=== PATIENT | female | born 1975 | race African-American/Black ===

== ENCOUNTER 2016-10-31 14:42 | Emergency (ER) | payer SELFPAY ==
[~2016-10-31] VITALS: Ht 160 cm; Wt 123.0 kg
[~2016-10-31 14:42] MED LIST: GLIP5TAB8 PO; GLUCOMETER XX; GLUCOMTESTSTRIPS XX; METF500 PO; Z.0.LANCETS XX
[2016-10-31 14:58] VITALS: BP 136/82; PULSE 97; RESP 16; TEMP 98.5; O2SAT 100
[2016-10-31] MEDS ORDERED: SODIUM CHLOR 0.9% 1000 ML INJ 1,000 ML IV SCH (15:12)
[2016-10-31] MEDS ORDERED: METF500T PO (15:14)
[2016-10-31] MEDS ORDERED: GLIP5TAB8 PO (15:14)
[2016-10-31] MEDS ORDERED: SODIUM CHLORIDE 0.9% FLUSH 5 ML FLUSH IVF PRN (15:15)
[2016-10-31] MEDS ORDERED: MORPHINE SULFATE 4 MG/ML INJ IV PUSH ONE (15:15)
[2016-10-31] MEDS ORDERED: ONDANSETRON HCL 4 MG/2 ML VIAL IVP ONE (15:15)
[2016-10-31 15:37] VITALS: O2SAT 100
[2016-10-31 15:43] LABS: AUTOMATED NEUTROPHIL # 5.3 TH/MM3 (1.8-7.7); BASOPHIL % 0.3 % (0.0-2.0); EOSINOPHIL # 0.2 TH/MM3 (0-0.4); EOSINOPHIL % 2.6 % (0.0-4.0); HEMATOCRIT 33.3 % (35.0-46.0); LYMPH % 35.9 % (9.0-44.0); LYMPHOCYTE # 3.4 TH/MM3 (1.0-4.8); MEAN CELL VOLUME 76.1 FL (80.0-100.0); MEAN CORPUSCULAR HEMOGLOBIN 23.6 PG (27.0-34.0); MONO % 5.3 % (0.0-8.0); NEUT % 55.9 % (16.0-70.0); PLATELET COUNT 340 TH/MM3 (150-450); RED BLOOD COUNT 4.37 MIL/MM3 (4.00-5.30); RED CELL DISTRIBUTION WIDTH 14.4 % (11.6-17.2); WHITE BLOOD COUNT 9.4 TH/MM3 (4.0-11.0)
[2016-10-31 15:43] LABS: BLOOD, URINE NEG (NEG); GLUCOSE,URINE NEG (NEG); KETONE, URINE NEG (NEG); NITRITE,URINE NEG (NEG); PH, URINE 5.5 (5.0-8.5)
[2016-10-31 15:46] LABS: HEMO FLAGS AUTO DIFF
[2016-10-31 15:55] LABS: POTASSIUM 3.7 MEQ/L (3.5-5.1)
[2016-10-31 15:59] LABS: BICARBONATE 25.9 MEQ/L (21.0-32.0)
[2016-10-31 15:59] LABS: COMMENT (UR) CULT NOT INDICATED; CULTURE IF INDICATED CULT NOT INDICATED; METHOD OF COLLECTION CLEAN CATCH; SQUAMOUS EPITHELIAL CELL URINE 0-5 /hpf (0-5); URINE COLOR YELLOW (YELLW/STRAW); WBC, URINE 0-2 /hpf (0-5)
--- NOTE | 2016-10-31 16:00 | PD ---
HPI Chief Complaint: Abdominal Pain Time Seen by Provider: 15:05 Travel History International Travel<30 days: No Contact w/Intl Traveler<30days: No Traveled to known affect area: No History of Present Illness HPI Patient is a 41 year old female who comes in complaining of abdominal pain with nausea that started today. She says the pain started in her RLQ. She denies fever or chills. She denies dysuria or vaginal discharge. She has had nausea, but denies vomiting. She denies chest pain or shortness of breath. Her last menstrual period was in September. She has history of tubal ligation. PFSH Past Medical History Asthma: Yes (on no meds for asthma) Autoimmune Disease: No Blood Disorders: No Heart Rhythm Problems: No Cancer: No Cardiovascular Problems: No High Cholesterol: No Chest Pain: Yes (INTERMITTENT SINCE 2006- none for years now) COPD: No Diabetes: Yes (type 2) Patient Takes Glucophage: Yes Diminished Hearing: No Endocrine: No Glaucoma: No Genitourinary: No Hepatitis: No Hiatal Hernia: No Hypertension: No Immune Disorder: No Musculoskeletal: No Neurologic: No Psychiatric: No Reproductive: No Respiratory: Yes Immunizations Current: Yes Sleep Apnea: No Thyroid Disease: No PNEUMOCCOCAL Vaccine (Year): 2 ?: Not LMP: 10/17/16 : 2 Para: 2 Tubal Ligation: Yes Past Surgical History Abdominal Surgery: No AICD: No Cardiac Surgery: No Ear Surgery: No Endocrine Surgery: No Eye Surgery: No Genitourinary Surgery: No Gynecologic Surgery: Yes (TUBAL LIGATION) Oral Surgery: No Pacemaker: No Thoracic Surgery: No Other Surgery: Yes Social History Alcohol Use: No Tobacco Use: No Substance Use: No Allergies-Medications (Allergen,Severity, Reaction): Coded Allergies: Iodinated Contrast Media (Verified Allergy, Severe, Anaphylaxis, 10/31/16) Iodine (Verified Allergy, Severe, Anaphylaxis, 10/31/16) Shrimp (Verified Allergy, Severe, Anaphylaxis, 10/31/16) Reported Meds & Prescriptions Reported Meds & Active Scripts Active Zofran Odt (Ondansetron Odt) 4 Mg Tab 4 Mg SL Q6HR PRN Bentyl (Dicyclomine HCl) 20 Mg Tab 20 Mg PO QID PRN Reported Glipizide 5 Mg Tab 5 Mg PO BIDAC Take 30 minutes before a meal Metformin (Metformin HCl) 500 Mg Tab 500 Mg PO BIDPC With meals Review of Systems Except as stated in HPI: all other systems reviewed are Neg General / Constitutional: No: Fever, Chills HENT: No: Headaches, Lightheadedness Cardiovascular: No: Chest Pain or Discomfort Respiratory: No: Shortness of Breath Gastrointestinal: Positive: Nausea, Abdominal Pain, No: Vomiting Genitourinary: No: Dysuria, Flank Pain Skin: No Rash, No Change in Pigmentation Neurologic: No: Weakness, Dizziness Physical Exam Narrative GENERAL: Awake and alert in no acute distress. SKIN: Warm and dry. HEAD: Atraumatic. Normocephalic. EYES: Pupils equal and round. No scleral icterus. ENT: Mucous membranes pink and moist. NECK: Trachea midline. No JVD. CARDIOVASCULAR: Regular rate and rhythm. No murmur appreciated. RESPIRATORY: No accessory muscle use. Clear to auscultation. Breath sounds equal bilaterally. GASTROINTESTINAL: Abdomen soft, nondistended. Tender to palpation of the right upper quadrant as well as right lower quadrant. Voluntary guarding, no rebound. No CVA tenderness. PELVIC: mild erythema of the cervix, scant white discharge. No CMT. MUSCULOSKELETAL: No obvious deformities. No clubbing. No cyanosis. No edema. NEUROLOGICAL: Awake and alert. No obvious cranial nerve deficits. Motor grossly within normal limits. Normal speech. PSYCHIATRIC: Appropriate mood and affect; insight and judgment normal. Data Data Last Documented VS Vital Signs Date Time Temp Pulse Resp B/P Pulse Ox O2 Delivery O2 Flow Rate FiO2 10/31/16 15:37 100 Room Air 10/31/16 14:58 98.5 97 16 136/82 Orders Basic Metabolic Panel (Bmp) (10/31/16 15:12) Complete Blood Count With Diff (10/31/16 15:12) Lipase (10/31/16 15:12) Prothrombin Time / Inr (Pt) (10/31/16 15:12) Act Partial Throm Time (Ptt) (10/31/16 15:12) Urinalysis - C+S If Indicated (10/31/16 15:12) Ua Includes Microscopic (10/31/16 15:12) Iv Access Insert/Monitor (10/31/16 15:12) Ecg Monitoring (10/31/16 15:12) Oximetry (10/31/16 15:12) Morphine Inj (Morphine Inj) (10/31/16 15:15) Ondansetron Inj (Zofran Inj) (10/31/16 15:15) Sodium Chlor 0.9% 1000 Ml Inj (Ns 1000 M (10/31/16 15:12) Sodium Chloride 0.9% Flush (Ns Flush) (10/31/16 15:15) Ed Urine Pregnancytest Poc (10/31/16 15:12) Hepatic Functional Panel (10/31/16 15:12) Ct Abd/Pel W/O Iv Contrast (10/31/16 15:12) Wet Prep Profile (10/31/16 15:51) Gc And Chlamydia Pcr (10/31/16 15:51) Labs Laboratory Tests Test 10/31/16 10/31/16 10/31/16 15:10 15:26 16:00 Urine Collection Type CLEAN CATCH Urine Color YELLOW Urine Turbidity CLEAR Urine pH 5.5 Urine Specific [place] 1.020 Urine Protein NEG mg/dL Urine Glucose (UA) NEG mg/dL Urine Ketones NEG mg/dL Urine Occult Blood NEG Urine Nitrite NEG Urine Bilirubin NEG Urine Leukocyte Esterase NEG Urine WBC 0-2 /hpf Urine Squamous Epithelial 0-5 /hpf Cells Microscopic Urinalysis Comment CULT NOT INDICATED Urine Collection Time 15:10 White Blood Count 9.4 TH/MM3 Red Blood Count 4.37 MIL/MM3 Hemoglobin 10.3 GM/DL Hematocrit 33.3 % Mean Corpuscular Volume 76.1 FL Mean Corpuscular Hemoglobin 23.6 PG Mean Corpuscular Hemoglobin 31.0 % Concent Red Cell Distribution Width 14.4 % Platelet Count 340 TH/MM3 Mean Platelet Volume 8.5 FL Neutrophils (%) (Auto) 55.9 % Lymphocytes (%) (Auto) 35.9 % Monocytes (%) (Auto) 5.3 % Eosinophils (%) (Auto) 2.6 % Basophils (%) (Auto) 0.3 % Neutrophils # (Auto) 5.3 TH/MM3 Lymphocytes # (Auto) 3.4 TH/MM3 Monocytes # (Auto) 0.5 TH/MM3 Eosinophils # (Auto) 0.2 TH/MM3 Basophils # (Auto) 0.0 TH/MM3 CBC Comment AUTO DIFF Differential Comment AUTO DIFF CONFIRMED Prothrombin Time 10.2 SEC Prothromb Time International 0.9 RATIO Ratio Activated Partial 27.4 SEC Thromboplast Time Sodium Level 141 MEQ/L Potassium Level 3.7 MEQ/L Chloride Level 105 MEQ/L Carbon Dioxide Level 25.9 MEQ/L Anion Gap 10 MEQ/L Blood Urea Nitrogen 5 MG/DL Creatinine 0.72 MG/DL Estimat Glomerular Filtration 109 ML/MIN Rate Random Glucose 168 MG/DL Calcium Level 8.3 MG/DL Total Bilirubin 0.6 MG/DL Direct Bilirubin 0.1 MG/DL Indirect Bilirubin 0.5 MG/DL Aspartate Amino Transf 9 U/L (AST/SGOT) Alanine Aminotransferase 13 U/L (ALT/SGPT) Alkaline Phosphatase 91 U/L Total Protein 7.4 GM/DL Albumin 3.1 GM/DL Lipase 125 U/L Clue Cells (Wet Prep) NONE SEEN Vaginal Trichomonas (Wet Prep) NONE SEEN Vaginal Yeast (Wet Prep) NONE SEEN Chlamydia trachomatis DNA NOT DETECTED (PCR) Neisseria gonorrhoeae DNA NOT DETECTED (PCR) MDM Medical Decision Making Medical Screen Exam Complete: Yes Emergency Medical Condition: Yes Medical Record Reviewed: Yes Differential Diagnosis UTI versus pyelonephritis versus appendicitis versus cholecystitis versus cholelithiasis versus colitis Narrative Course Patient is a 41-year-old female comes in complaining of abdominal pain. Exam shows tenderness to palpation of the right upper and right lower quadrant. IV established, labs sent. Patient given IV fluids, morphine for pain, Zofran. Cervical swab sent for wet prep as well as GC/chlamydia PCR. Patient signed out to Dr. Coles to follow-up CT scan as well as her labs and disposition appropriately. Scripts Ondansetron Odt (Zofran Odt)4 Mg Tab4 Mg SL Q6HR PRN (Nausea/Vomiting) #30 TAB Ref 0 Prov:Aubrey Coles MD 10/31/16 Dicyclomine (Bentyl)20 Mg Tab20 Mg PO QID PRN (ABDOMINAL CRAMPING) #15 TAB Ref 0 Prov:Aubrey Coles MD 10/31/16 Condition: Stable Claudine Solis MD Oct 31, 2016 16:00
[2016-10-31 16:03] LABS: INDIRECT BILIRUBIN 0.5 MG/DL (0.0-0.8); TOTAL BILIRUBIN ADULT 0.6 MG/DL (0.2-1.0)
[2016-10-31 16:20] LABS: SCAN/DIFF AUTO DIFF CONFIRMED
[2016-10-31 16:28] LABS: APTT (PATIENT) 27.4 SEC (24.3-30.1); INTERNATIONAL NORMALIZED RATIO 0.9 RATIO; PROTHROMBIN TIME - PATIENT 10.2 SEC (9.8-11.6)
--- NOTE | 2016-10-31 17:14 | RADHPO ---
EXAM DATE/TIME: 10/31/2016 16:45 [facility] COMPARISON: CT ABDOMEN & PELVIS W/O CONTRAST, January 04, 2011, 22:12 report only. INDICATIONS : Right lower abdomen pain today. ORAL CONTRAST: No oral contrast ingested. RADIATION DOSE: 23.84 CTDIvol (mGy) MEDICAL HISTORY : Diabetes mellitus type 2. SURGICAL HISTORY : Tubal ligation. ENCOUNTER: Initial ACUITY: 1 day PAIN SCALE: 7/10 LOCATION: Right lower quadrant TECHNIQUE: Volumetric scanning of the abdomen and pelvis was performed. Using automated exposure control and adjustment of the mA and/or kV according to patient size, radiation dose was kept as low as reasonably achievable to obtain optimal diagnostic quality images. FINDINGS: LOWER LUNGS: The visualized lower lungs are clear. LIVER: Homogeneous density without lesion. There is no dilation of the biliary tree. No calcifi ed gallstones. Gallbladder sutures a luminal structure without wall thickening SPLEEN: Normal size without lesion. PANCREAS: Within normal limits. KIDNEYS: Normal in size and shape. There is no mass, stone, or hydronephrosis. ADRENAL GLANDS: Within normal limits. VASCULAR: There is no aortic aneurysm. BOWEL/MESENTERY: The stomach, small bowel, and colon demonstrate no acute abnormality. There is no free intraperitoneal air or fluid. What may represent normal appendix is visualized. No inflammato ry changes in the right lower quadrant. ABDOMINAL WALL: Within normal limits. RETROPERITONEUM: There is no lymphadenopathy. BLADDER: No wall thickening or mass. REPRODUCTIVE: Within normal limits. INGUINAL: There is no lymphadenopathy or hernia. MUSCULOSKELETAL: Within normal limits for patient age. CONCLUSION: Negative examination Gunner Frances MD on October 31, 2016 at 17:08 Board Certified Radiologist. This report was verified electronically.
[2016-10-31] MEDS ORDERED: BENT20TA PO (17:36)
[2016-10-31] MEDS ORDERED: ZOFR4TAB3 SL (17:36)
--- NOTE | 2016-10-31 17:36 | PD ---
Data Data Last Documented VS Vital Signs Date Time Temp Pulse Resp B/P Pulse Ox O2 Delivery O2 Flow Rate FiO2 10/31/16 15:37 100 Room Air 10/31/16 14:58 98.5 97 16 136/82 Orders Basic Metabolic Panel (Bmp) (10/31/16 15:12) Complete Blood Count With Diff (10/31/16 15:12) Lipase (10/31/16 15:12) Prothrombin Time / Inr (Pt) (10/31/16 15:12) Act Partial Throm Time (Ptt) (10/31/16 15:12) Urinalysis - C+S If Indicated (10/31/16 15:12) Ua Includes Microscopic (10/31/16 15:12) Iv Access Insert/Monitor (10/31/16 15:12) Ecg Monitoring (10/31/16 15:12) Oximetry (10/31/16 15:12) Morphine Inj (Morphine Inj) (10/31/16 15:15) Ondansetron Inj (Zofran Inj) (10/31/16 15:15) Sodium Chlor 0.9% 1000 Ml Inj (Ns 1000 M (10/31/16 15:12) Sodium Chloride 0.9% Flush (Ns Flush) (10/31/16 15:15) Ed Urine Pregnancytest Poc (10/31/16 15:12) Hepatic Functional Panel (10/31/16 15:12) Ct Abd/Pel W/O Iv Contrast (10/31/16 15:12) Wet Prep Profile (10/31/16 15:51) Gc And Chlamydia Pcr (10/31/16 15:51) Labs Laboratory Tests Test 10/31/16 10/31/16 10/31/16 15:10 15:26 16:00 Urine Collection Type CLEAN CATCH Urine Color YELLOW Urine Turbidity CLEAR Urine pH 5.5 Urine Specific [place] 1.020 Urine Protein NEG mg/dL Urine Glucose (UA) NEG mg/dL Urine Ketones NEG mg/dL Urine Occult Blood NEG Urine Nitrite NEG Urine Bilirubin NEG Urine Leukocyte Esterase NEG Urine WBC 0-2 /hpf Urine Squamous Epithelial 0-5 /hpf Cells Microscopic Urinalysis Comment CULT NOT INDICATED Urine Collection Time 15:10 White Blood Count 9.4 TH/MM3 Red Blood Count 4.37 MIL/MM3 Hemoglobin 10.3 GM/DL Hematocrit 33.3 % Mean Corpuscular Volume 76.1 FL Mean Corpuscular Hemoglobin 23.6 PG Mean Corpuscular Hemoglobin 31.0 % Concent Red Cell Distribution Width 14.4 % Platelet Count 340 TH/MM3 Mean Platelet Volume 8.5 FL Neutrophils (%) (Auto) 55.9 % Lymphocytes (%) (Auto) 35.9 % Monocytes (%) (Auto) 5.3 % Eosinophils (%) (Auto) 2.6 % Basophils (%) (Auto) 0.3 % Neutrophils # (Auto) 5.3 TH/MM3 Lymphocytes # (Auto) 3.4 TH/MM3 Monocytes # (Auto) 0.5 TH/MM3 Eosinophils # (Auto) 0.2 TH/MM3 Basophils # (Auto) 0.0 TH/MM3 CBC Comment AUTO DIFF Differential Comment AUTO DIFF CONFIRMED Prothrombin Time 10.2 SEC Prothromb Time International 0.9 RATIO Ratio Activated Partial 27.4 SEC Thromboplast Time Sodium Level 141 MEQ/L Potassium Level 3.7 MEQ/L Chloride Level 105 MEQ/L Carbon Dioxide Level 25.9 MEQ/L Anion Gap 10 MEQ/L Blood Urea Nitrogen 5 MG/DL Creatinine 0.72 MG/DL Estimat Glomerular Filtration 109 ML/MIN Rate Random Glucose 168 MG/DL Calcium Level 8.3 MG/DL Total Bilirubin 0.6 MG/DL Direct Bilirubin 0.1 MG/DL Indirect Bilirubin 0.5 MG/DL Aspartate Amino Transf 9 U/L (AST/SGOT) Alanine Aminotransferase 13 U/L (ALT/SGPT) Alkaline Phosphatase 91 U/L Total Protein 7.4 GM/DL Albumin 3.1 GM/DL Lipase 125 U/L Clue Cells (Wet Prep) NONE SEEN Vaginal Trichomonas (Wet Prep) NONE SEEN Vaginal Yeast (Wet Prep) NONE SEEN MDM Supervised Visit with LUCRECIA: No Narrative Course Patient care assumed from Dr. Solis at 1600. Patient's labs CT reviewed and unremarkable. Patient reexamined by me and appears well in no apparent distress. Abdomen is benign. She states she is feeling somewhat better after interventions by Dr. Solis. Discussed with her her findings and no acute intervention or further workup indicated at this time. She was referred to multiple providers for follow-up. Discussed need for follow-up the patient assistance. She is stable for discharge at this time discussed symptomatically management and return to ED criteria. Diagnosis Primary Impression: Abdominal pain Qualified Code: R10.31 - Right lower quadrant abdominal pain Referrals: Rosie Sanchez MD, Neil R. MD Med/Other Pt SpecificInfo: Prescription(s) given Scripts Ondansetron Odt (Zofran Odt)4 Mg Tab4 Mg SL Q6HR PRN (Nausea/Vomiting) #30 TAB Ref 0 Prov:Aubrey Coles MD 10/31/16 Dicyclomine (Bentyl)20 Mg Tab20 Mg PO QID PRN (ABDOMINAL CRAMPING) #15 TAB Ref 0 Prov:Aubrey Coles MD 10/31/16 Disposition: 01 DISCHARGE HOME Condition: Stable Aubrey Coles MD Oct 31, 2016 17:36
[2016-11-01 07:02] LABS: CHLAMYDIA PCR NOT DETECTED (NOT DETECT); NEISSERIA PCR NOT DETECTED (NOT DETECT)
== END 2016-10-31 17:45 | disposition home or self-care (01) ==
LOC: PHED 14:42
DX: R10.31 Right lower quadrant pain (principal); R11.0 Nausea; J45.909 Unspecified asthma, uncomplicated; E11.9 Type 2 diabetes mellitus without complications
CPT/HCPCS: 74176; 80048; 80076; 81001; 83690; 84703; 85025; 85610; 85730; 87210; 87491; 87591; 96361; 96374; 96375; 99284; J2270; J2405; J7030

== ENCOUNTER 2017-09-19 19:40 | Emergency (ER) | payer SELFPAY ==
[~2017-09-19 19:40] MED LIST changes: +BENT20TA PO; -GLUCOMETER XX; -GLUCOMTESTSTRIPS XX; -METF500 PO; +METF500T PO; -Z.0.LANCETS XX; +ZOFR4TAB3 SL
[2017-09-19 20:16] VITALS: BP 136/84; PULSE 97; RESP 16; O2SAT 100
[2017-09-19 20:22] VITALS: TEMP 98
[2017-09-19 20:41] LABS: AUTOMATED NEUTROPHIL # 7.2 TH/MM3 (1.8-7.7); BASOPHIL % 0.3 % (0.0-2.0); EOSINOPHIL # 0.2 TH/MM3 (0-0.4); EOSINOPHIL % 1.7 % (0.0-4.0); HEMATOCRIT 30.8 % (35.0-46.0); LYMPH % 29.9 % (9.0-44.0); LYMPHOCYTE # 3.5 TH/MM3 (1.0-4.8); MEAN CELL VOLUME 75.7 FL (80.0-100.0); MEAN CORPUSCULAR HEMOGLOBIN 23.2 PG (27.0-34.0); MEAN CORPUSCULAR HGB CONC 30.6 % (32.0-36.0); MONO % 6.1 % (0.0-8.0); PLATELET COUNT 336 TH/MM3 (150-450); RED BLOOD COUNT 4.06 MIL/MM3 (4.00-5.30); RED CELL DISTRIBUTION WIDTH 15.1 % (11.6-17.2); WHITE BLOOD COUNT 11.6 TH/MM3 (4.0-11.0)
[2017-09-19] MEDS ORDERED: KETOROLAC TROMETHAMINE 30 MG/ML (IVP) VIAL IV PUSH ONE (20:45)
[2017-09-19] MEDS ORDERED: SODIUM CHLORIDE 0.9% FLUSH 10 ML FLUSH IVF PRN (20:45)
[2017-09-19 20:54] LABS: CHLORIDE 104 MEQ/L (98-107); POTASSIUM 3.6 MEQ/L (3.5-5.1); SODIUM (NA) 137 MEQ/L (136-145)
[2017-09-19 20:56] LABS: HEMO FLAGS AUTO DIFF
[2017-09-19 20:57] LABS: ANION GAP 8 MEQ/L (5-15); BICARBONATE 25.3 MEQ/L (21.0-32.0); MAGNESIUM 1.9 MG/DL (1.5-2.5)
[2017-09-19 20:58] VITALS: O2SAT 99
[2017-09-19 20:58] LABS: BLOOD UREA NITROGEN 10 MG/DL (7-18)
[2017-09-19 20:59] LABS: APTT (PATIENT) 25.7 SEC (24.3-30.1); INTERNATIONAL NORMALIZED RATIO 0.9 RATIO
--- NOTE | 2017-09-19 20:59 | RADRPT ---
EXAM DATE/TIME: 09/19/2017 20:37 [facility] COMPARISON: No previous studies available for comparison. INDICATIONS : Chest pain. MEDICAL HISTORY : Diabetes mellitus type II. SURGICAL HISTORY : None. ENCOUNTER: Initial ACUITY: 1 day PAIN SCORE: 5/10 LOCATION: Right chest FINDINGS: A single view of the chest demonstrates the lungs to be symmetrically aerated without evidence of mas s, infiltrate or effusion. The cardiomediastinal contours are unremarkable. Osseous structures are intact. CONCLUSION: No acute disease. Pieter Wells MD on September 19, 2017 at 20:57 Board Certified Radiologist. This report was verified electronically.
[2017-09-19 21:01] LABS: ALT (GPT) 17 U/L (10-53); AST (GOT) 10 U/L (15-37); GLOMERULAR FILTRATION RATE 79 ML/MIN (>89)
[2017-09-19 21:02] LABS: TOTAL BILIRUBIN ADULT 0.3 MG/DL (0.2-1.0)
[2017-09-19 21:03] LABS: ALKALINE PHOSPHATASE 114 U/L (45-117)
[2017-09-19 21:04] VITALS: BP 129/80; PULSE 95; RESP 18; O2SAT 99
--- NOTE | 2017-09-19 21:04 | PD ---
HPI Chief Complaint: Chest Pain Time Seen by Provider: 20:16 Travel History International Travel<30 days: No Contact w/Intl Traveler<30days: No Traveled to known affect area: No History of Present Illness HPI Is a 42-year-old female presents emergency department for evaluation of right- sided chest pain radiating to her right shoulder for the past 2 hours. Patient states that she ate dinner tonight with chicken soup and it was nothing wrong with a meal. Denies any fatty food ingestion. Does not endorse any nausea or vomiting. No shortness of breath. No fevers. Patient states is never happened to her before, no history of heart disease in the family or herself. No history of blood clots in herself or her family. States symptoms are intermittent, moderate, context as above, associated signs symptoms as above. PFSH Past Medical History Asthma: Yes (on no meds for asthma) Autoimmune Disease: No Blood Disorders: No Heart Rhythm Problems: No Cancer: No Cardiovascular Problems: No High Cholesterol: No Chest Pain: Yes (INTERMITTENT SINCE 2006- none for years now) COPD: No Diabetes: Yes Patient Takes Glucophage: Yes Diminished Hearing: No Endocrine: No Glaucoma: No Genitourinary: No Hepatitis: No Hiatal Hernia: No Hypertension: No Immune Disorder: No Musculoskeletal: No Neurologic: No Psychiatric: No Reproductive: No Respiratory: Yes Immunizations Current: Yes Sleep Apnea: No Thyroid Disease: No Tetanus Vaccination: Unknown Influenza Vaccination: No PNEUMOCCOCAL Vaccine (Year): 2 ?: Not LMP: 11-19-17 : 2 Para: 2 Tubal Ligation: Yes Past Surgical History Abdominal Surgery: No AICD: No Cardiac Surgery: No Ear Surgery: No Endocrine Surgery: No Eye Surgery: No Genitourinary Surgery: No Gynecologic Surgery: Yes (TUBAL LIGATION) Oral Surgery: No Pacemaker: No Thoracic Surgery: No Other Surgery: Yes Social History Alcohol Use: No Tobacco Use: No Substance Use: No Allergies-Medications (Allergen,Severity, Reaction): Coded Allergies: Iodinated Contrast- Oral and IV Dye (Unverified Allergy, Severe, Anaphylaxis, 09/19/17) iodine (Unverified Allergy, Severe, Anaphylaxis, 09/19/17) potassium iodide (Unverified Allergy, Severe, Anaphylaxis, 09/19/17) povidone-iodine (Unverified Allergy, Severe, Anaphylaxis, 09/19/17) shrimp (Unverified Allergy, Severe, Anaphylaxis, 09/19/17) sodium iodide (Unverified Allergy, Severe, Anaphylaxis, 09/19/17) sodium iodide (Unverified Allergy, Severe, Anaphylaxis, 09/19/17) Reported Meds & Prescriptions Reported Meds & Active Scripts Active Reported Glipizide 5 Mg Tab 5 Mg PO BIDAC Take 30 minutes before a meal Metformin (Metformin HCl) 500 Mg Tab 500 Mg PO BIDPC With meals Review of Systems Except as stated in HPI: all other systems reviewed are Neg Physical Exam Narrative GENERAL: Well-developed well-nourished, morbidly obese in no obvious distress SKIN: Focused skin assessment warm/dry. HEAD: Atraumatic. Normocephalic. EYES: Pupils equal and round. No scleral icterus. No injection or drainage. ENT: No nasal bleeding or discharge. Mucous membranes pink and moist. NECK: Trachea midline. No JVD. CARDIOVASCULAR: Regular rate and rhythm. No murmur appreciated. RESPIRATORY: No accessory muscle use. Clear to auscultation. Breath sounds equal bilaterally. GASTROINTESTINAL: Abdomen soft, is moderate tenderness to the right upper quadrant, Bales sign negative. No rebound no percussive tenderness., nondistended. Hepatic and splenic margins not palpable. MUSCULOSKELETAL: No obvious deformities. No clubbing. No cyanosis. No edema. NEUROLOGICAL: Awake and alert. No obvious cranial nerve deficits. Motor grossly within normal limits. Normal speech. PSYCHIATRIC: Appropriate mood and affect; insight and judgment normal. Data Data Last Documented VS Vital Signs Date Time Temp Pulse Resp B/P (MAP) Pulse Ox O2 Delivery O2 Flow Rate FiO2 09/19/17 22:24 98.8 85 16 133/77 (95) 100 09/19/17 21:04 Room Air Orders Orders Complete Blood Count With Diff (09/19/17 20:32) Comprehensive Metabolic Panel (09/19/17 20:32) Magnesium (Mg) (09/19/17 20:32) Prothrombin Time / Inr (Pt) (09/19/17 20:32) Act Partial Throm Time (Ptt) (09/19/17 20:32) Troponin I (09/19/17 20:32) Chest, Single Ap (09/19/17 20:32) Ecg Monitoring (09/19/17 20:32) Iv Access Insert/Monitor (09/19/17 20:32) Oximetry (09/19/17 20:32) Oxygen Administration (09/19/17 20:32) Sodium Chloride 0.9% Flush (Ns Flush) (09/19/17 20:45) Ed Poc Ultrasound (09/19/17 20:32) Ketorolac Inj (Toradol Inj) (09/19/17 20:45) Urinalysis - C+S If Indicated (09/19/17 20:56) Ed Urine Pregnancytest Poc (09/19/17 20:56) Electrocardiogram (09/19/17 19:45) Lipase (09/19/17 20:20) Ed Discharge Order (09/19/17 22:22) Labs Laboratory Tests Test 09/19/17 20:20 09/19/17 21:20 White Blood Count 11.6 TH/MM3 Red Blood Count 4.06 MIL/MM3 Hemoglobin 9.4 GM/DL Hematocrit 30.8 % Mean Corpuscular Volume 75.7 FL Mean Corpuscular Hemoglobin 23.2 PG Mean Corpuscular Hemoglobin Concent 30.6 % Red Cell Distribution Width 15.1 % Platelet Count 336 TH/MM3 Mean Platelet Volume 8.8 FL Neutrophils (%) (Auto) 62.0 % Lymphocytes (%) (Auto) 29.9 % Monocytes (%) (Auto) 6.1 % Eosinophils (%) (Auto) 1.7 % Basophils (%) (Auto) 0.3 % Neutrophils # (Auto) 7.2 TH/MM3 Lymphocytes # (Auto) 3.5 TH/MM3 Monocytes # (Auto) 0.7 TH/MM3 Eosinophils # (Auto) 0.2 TH/MM3 Basophils # (Auto) 0.0 TH/MM3 CBC Comment AUTO DIFF Differential Total Cells Counted 100 Neutrophils % (Manual) 52 % Band Neutrophils % 2 % Lymphocytes % 36 % Monocytes % 5 % Eosinophils % 2 % Basophils % 1 % Neutrophils # (Manual) 6.5 TH/MM3 Metamyelocytes 1 % Myelocytes 1 % Differential Comment FINAL DIFF MANUAL Platelet Estimate NORMAL Platelet Morphology Comment NORMAL Prothrombin Time 10.0 SEC Prothromb Time International Ratio 0.9 RATIO Activated Partial Thromboplast Time 25.7 SEC Blood Urea Nitrogen 10 MG/DL Creatinine 0.95 MG/DL Random Glucose 199 MG/DL Total Protein 6.9 GM/DL Albumin 3.2 GM/DL Calcium Level 8.0 MG/DL Magnesium Level 1.9 MG/DL Alkaline Phosphatase 114 U/L Aspartate Amino Transf (AST/SGOT) 10 U/L Alanine Aminotransferase (ALT/SGPT) 17 U/L Total Bilirubin 0.3 MG/DL Sodium Level 137 MEQ/L Potassium Level 3.6 MEQ/L Chloride Level 104 MEQ/L Carbon Dioxide Level 25.3 MEQ/L Anion Gap 8 MEQ/L Estimat Glomerular Filtration Rate 79 ML/MIN Troponin I LESS THAN 0.02 NG/ML Lipase 139 U/L Urine Color YELLOW Urine Turbidity SLIGHT Urine pH 6.0 Urine Specific [place] 1.025 Urine Protein NEG mg/dL Urine Glucose (UA) NEG mg/dL Urine Ketones NEG mg/dL Urine Occult Blood TRACE Urine Nitrite NEG Urine Bilirubin NEG Urine Leukocyte Esterase NEG Urine RBC 0-3 /hpf Urine WBC 3-5 /hpf Urine Squamous Epithelial Cells > 8 /hpf Urine Bacteria OCC /hpf Urine Mucus MOD /lpf Microscopic Urinalysis Comment CULT NOT INDICATED MDM Medical Decision Making Medical Screen Exam Complete: Yes Emergency Medical Condition: Yes Differential Diagnosis biliary colic, acute cholecystitis, pancreatitis, gastritis, gastroenteritis, ACS is possible but highly unlikely. Narrative Course Patient roomed in emergency department, EKG shows sinus tachycardia with 107 heart rate otherwise negative. Symptoms are highly suggestive of a biliary cause. The labs are reassuring. Troponin was sent for completeness sake and negative. Chest x-ray negative. Ultrasound was reassuring as well. Patient feeling better after medications. Discussed with her likely diagnosis of biliary colic recommended that she follow-up with a general surgeon and her primary care physician. Discussed to avoid fatty foods and discussed return to ED criteria. She stable for discharge. Procedures Procedure Narrative Bedside ultrasound was performed which does show a contracted gallbladder but no gallstones no pericholecystic fluid ultrasonographic bales sign was negative. Diagnosis Primary Impression: RUQ abdominal pain Additional Impression: Biliary colic Referrals: Ahmet Hawley MD Disposition: 01 DISCHARGE HOME Condition: Stable Aubrey Coles MD Sep 19, 2017 21:04
[2017-09-19 21:18] LABS: BANDS 2 % (0-6); BASOPHILS 1 % (0-2); EOSINOPHILS 2 % (0-4); METAMYELOCYTES 1 % (0-1); MYELOCYTES 1 % (0-0); NEUTROPHIL # MANUAL DIFF 6.5 TH/MM3 (1.8-7.7); POLYS (SEG NEUTROPHILS) 52 % (16-70); WBC DIFF SAMPLE 100
[2017-09-19 21:28] LABS: PLATELET ESTIMATE SMEAR NORMAL (NORMAL); PLATELET MORPHOLOGY NORMAL (NORMAL); SCAN/DIFF FINAL DIFF MANUAL
[2017-09-19 21:32] LABS: BLOOD, URINE TRACE (NEG); GLUCOSE,URINE NEG (NEG); KETONE, URINE NEG (NEG); NITRITE,URINE NEG (NEG)
--- NOTE | 2017-09-19 21:32 | EKG ---
Date Performed: 09/19/2017 Time Performed: 19:45:26 PTAGE: 42 years EKG: SINUS TACHYCARDIA NONSPECIFIC T-WAVE ABNORMALITY ABNORMAL RHYTHM ECG PREVIOUS TRACING : 01/23/2015 13.39 Compared to previous tracing, nonspecific T wave abnormalit y is now present. DOCTOR: Atilio Cohen Interpretating Date/Time 09/19/2017 21:30:21
[2017-09-19 21:37] LABS: URINE COLOR YELLOW (YELLW/STRAW)
[2017-09-19 21:38] LABS: MUCUS URINE MOD /lpf (OCC); SQUAMOUS EPITHELIAL CELL URINE > 8 /hpf (0-5)
[2017-09-19 21:39] LABS: BACTERIA, URINE OCC /hpf; COMMENT (UR) CULT NOT INDICATED; CULTURE IF INDICATED CULT NOT INDICATED; RBC, URINE 0-3 /hpf (0-3)
[2017-09-19 21:57] VITALS: RESP 18
[2017-09-19 22:24] VITALS: BP 133/77; TEMP 98.8
== END 2017-09-19 22:38 | disposition home or self-care (01) ==
LOC: PHED 19:40
DX: K80.50 Calculus of bile duct without cholangitis or cholecystitis without obstruction (principal); R00.0 Tachycardia, unspecified; E11.9 Type 2 diabetes mellitus without complications; Z79.84 Long term (current) use of oral hypoglycemic drugs
CPT/HCPCS: 71010; 80053; 81001; 83690; 83735; 84484; 84703; 85007; 85027; 85610; 85730; 93005; 96374; 99285; J1885

== ENCOUNTER 2017-11-04 23:50 | Emergency (ER) | payer SELFPAY ==
[~2017-11-04] VITALS: Ht 160 cm; Wt 127.6 kg
[~2017-11-04 23:50] MED LIST changes: -BENT20TA PO; -ZOFR4TAB3 SL
[2017-11-04 23:57] VITALS: BP 141/83; PULSE 110; RESP 18; TEMP 98.2; O2SAT 99
[2017-11-05 02:17] VITALS: BP 137/88; PULSE 98; RESP 20; O2SAT 99
--- NOTE | 2017-11-05 02:37 | PD ---
HPI Chief Complaint: Cold / Flu Symptoms Time Seen by Provider: 02:19 Travel History International Travel<30 days: No Contact w/Intl Traveler<30days: No Traveled to known affect area: No History of Present Illness HPI Patient is a 42-year-old female presents emergency department for evaluation of cough congestion and body aches. Patient states symptoms been going on for the past 4 days, states she's also been having some chills as well as fevers. States symptoms been gradually worsening. No history of HIV but does have history diabetes and is out of her metformin.. States she's also been having some chest achiness. Denies any shortness of breath abdominal pain nausea vomiting or diarrhea blood in the stool or blood in the urine. Symptoms moderate, gradually worsening, past 4 days, associated signs symptoms as above. PFSH Past Medical History Asthma: Yes (on no meds for asthma) Autoimmune Disease: No Blood Disorders: No Heart Rhythm Problems: No Cancer: No Cardiovascular Problems: No High Cholesterol: No Chest Pain: Yes (INTERMITTENT SINCE 2006- none for years now) COPD: No Diabetes: Yes Patient Takes Glucophage: No Diminished Hearing: No Endocrine: No Glaucoma: No Genitourinary: No Hepatitis: No Hiatal Hernia: No Hypertension: No Immune Disorder: No Musculoskeletal: No Neurologic: No Psychiatric: No Reproductive: No Respiratory: Yes Immunizations Current: Yes Sleep Apnea: No Thyroid Disease: No PNEUMOCCOCAL Vaccine (Year): 2 ?: Not LMP: 10/17/17 : 2 Para: 2 Tubal Ligation: Yes Past Surgical History Abdominal Surgery: No AICD: No Cardiac Surgery: No Ear Surgery: No Endocrine Surgery: No Eye Surgery: No Genitourinary Surgery: No Gynecologic Surgery: Yes (TUBAL LIGATION) Oral Surgery: No Pacemaker: No Thoracic Surgery: No Other Surgery: Yes Social History Alcohol Use: No Tobacco Use: No Substance Use: No Allergies-Medications (Allergen,Severity, Reaction): Coded Allergies: Iodinated Contrast- Oral and IV Dye (Unverified Allergy, Severe, Anaphylaxis, 11/05/17) iodine (Unverified Allergy, Severe, Anaphylaxis, 11/05/17) potassium iodide (Unverified Allergy, Severe, Anaphylaxis, 11/05/17) povidone-iodine (Unverified Allergy, Severe, Anaphylaxis, 11/05/17) shrimp (Unverified Allergy, Severe, Anaphylaxis, 11/05/17) sodium iodide (Unverified Allergy, Severe, Anaphylaxis, 11/05/17) sodium iodide (Unverified Allergy, Severe, Anaphylaxis, 11/05/17) Reported Meds & Prescriptions Reported Meds & Active Scripts Active Mucinex DM (Dextromethorphan-Guaifenesin) 30-600 Mg Tab 1 Tab PO BID PRN Metformin (Metformin HCl) 500 Mg Tab 500 Mg PO BIDPC With meals Reported Glipizide 5 Mg Tab 5 Mg PO BIDAC Take 30 minutes before a meal Review of Systems Except as stated in HPI: all other systems reviewed are Neg Physical Exam Narrative GENERAL: [Well-developed well-nourished, morbidly obese in no obvious distress SKIN: Focused skin assessment warm/dry. HEAD: Atraumatic. Normocephalic. EYES: Pupils equal and round. No scleral icterus. No injection or drainage. ENT: No nasal bleeding or discharge. Mucous membranes pink and moist. TMs clear bilaterally, oropharynx minimally erythematous but no cobblestoning no edema. NECK: Trachea midline. No JVD. CARDIOVASCULAR: Regular rate and rhythm. No murmur appreciated. RESPIRATORY: No accessory muscle use. Clear to auscultation. Breath sounds equal bilaterally. GASTROINTESTINAL: Abdomen soft, non-tender, nondistended. Hepatic and splenic margins not palpable. MUSCULOSKELETAL: No obvious deformities. No clubbing. No cyanosis. No edema. NEUROLOGICAL: Awake and alert. No obvious cranial nerve deficits. Motor grossly within normal limits. Normal speech. PSYCHIATRIC: Appropriate mood and affect; insight and judgment normal. Data Data Last Documented VS Vital Signs Date Time Temp Pulse Resp B/P (MAP) Pulse Ox O2 Delivery O2 Flow Rate FiO2 11/05/17 03:07 95 20 133/76 (95) 98 11/05/17 02:17 Room Air 11/04/17 23:57 98.2 Orders Orders Chest, Pa & Lat (11/05/17 ) Bedside Glucose DORINA.CSUGAR (11/05/17 02:19) Ed Discharge Order (11/05/17 02:51) MDM Medical Decision Making Medical Screen Exam Complete: Yes Emergency Medical Condition: Yes Differential Diagnosis Pneumonia, influenza, cough. Narrative Course Patient roomed in emergency department, out of window for Tamiflu and therefore no indication for testing of influenza. Chest x-ray negative. Discussed and medic management returned ED criteria. No indication further workup at this time as patient appears well. She stable for discharge. Diagnosis Primary Impression: Flu-like symptoms Med/Other Pt SpecificInfo: Prescription(s) given Scripts Dextromethorphan-Guaifenesin (Mucinex DM) 30-600 Mg Tab 1 TAB PO BID Y for CHEST CONGESTION AND/OR COUGH, #20 TAB 0 Refills Prov: Aubrey Coles MD 11/05/17 Metformin (Metformin) 500 Mg Tab 500 MG PO BIDPC for Blood Sugar Management, #60 TAB 0 Refills With meals Prov: Aubrey Coles MD 11/05/17 Disposition: 01 DISCHARGE HOME Condition: Stable Aubrey Coles MD Nov 05, 2017 02:37
[2017-11-05] MEDS ORDERED: HUMIBIDDM PO (02:38)
[2017-11-05] MEDS ORDERED: METF500T PO (02:38)
--- NOTE | 2017-11-05 02:54 | RADRPT ---
EXAM DATE/TIME: 11/05/2017 02:39 [facility] COMPARISON: CHEST SINGLE AP, September 19, 2017, 20:37. INDICATIONS : Cough, chest congestion for 3 days MEDICAL HISTORY : Diabetes mellitus type II. SURGICAL HISTORY : None. ENCOUNTER: Initial ACUITY: 3 days PAIN SCORE: 5/10 LOCATION: Bilateral chest FINDINGS: PA and lateral views of the chest demonstrate the lungs to be symmetrically aerated without evidence of mass, infiltrate or effusion. The cardiomediastinal contours are unremarkable. Osseous structure s are intact. CONCLUSION: No acute disease. No significant change has occurred. Nilton Montesinos MD on November 05, 2017 at 2:52 Board Certified Radiologist. This report was verified electronically.
[2017-11-05 03:07] VITALS: BP 133/76
== END 2017-11-05 03:09 | disposition home or self-care (01) ==
LOC: PHED 23:50
DX: J11.1 Influenza due to unidentified influenza virus with other respiratory manifestations (principal); E11.9 Type 2 diabetes mellitus without complications; Z79.84 Long term (current) use of oral hypoglycemic drugs
CPT/HCPCS: 71046; 99283

== ENCOUNTER 2017-11-12 21:00 | Emergency (ER) | payer SELFPAY ==
[~2017-11-12] VITALS: Ht 160 cm; Wt 127.7 kg
[~2017-11-12 21:00] MED LIST changes: +HUMIBIDDM PO
[2017-11-12 21:15] VITALS: BP 143/89; PULSE 110; RESP 20; TEMP 98.3
[2017-11-12] MEDS ORDERED: SODIUM CHLORIDE 0.9% FLUSH 10 ML FLUSH IVF PRN (21:30)
[2017-11-12] MEDS ORDERED: RESP: ALBUTEROL 2.5 MG/3 ML NEB (SCH) INH ONE (21:30)
--- NOTE | 2017-11-12 22:01 | RADRPT ---
EXAM DATE/TIME: 11/12/2017 21:32 [facility] COMPARISON: CHEST SINGLE AP, September 19, 2017, 20:37. INDICATIONS : Shortness of breath. MEDICAL HISTORY : Diabetes mellitus type II. SURGICAL HISTORY : None. ENCOUNTER: Initial ACUITY: 1 day PAIN SCORE: 5/10 LOCATION: Bilateral chest FINDINGS: A single view of the chest demonstrates the lungs to be symmetrically aerated without evidence of mas s, infiltrate or effusion. The cardiomediastinal contours are unremarkable. Osseous structures are intact. CONCLUSION: No acute disease. Bob Ribeiro Jr., MD on November 12, 2017 at 21:58 Board Certified Radiologist. This report was verified electronically.
--- NOTE | 2017-11-12 22:43 | PD ---
HPI Chief Complaint: Cold / Flu Symptoms Time Seen by Provider: 21:03 Travel History International Travel<30 days: No Contact w/Intl Traveler<30days: No Traveled to known affect area: No History of Present Illness HPI The patient is 42 years old. She complains of cough, nonproductive, as well as chest pain and upper back pain. About one week prior she was seen here and diagnosed with flu. She reports since then taking [id number] flu medication which has been marginally beneficial. There is been no fever. The patient struggled performing her work routine tonight on account of the symptoms. PFSH Past Medical History Asthma: Yes (on no meds for asthma) Autoimmune Disease: No Blood Disorders: No Heart Rhythm Problems: No Cancer: No Cardiovascular Problems: No High Cholesterol: No Chest Pain: Yes (INTERMITTENT SINCE 2006- none for years now) COPD: No Diabetes: Yes Patient Takes Glucophage: Yes Diminished Hearing: No Endocrine: No Glaucoma: No Genitourinary: No Hepatitis: No Hiatal Hernia: No Hypertension: No Immune Disorder: No Musculoskeletal: No Neurologic: No Psychiatric: No Reproductive: No Respiratory: Yes Immunizations Current: Yes Sleep Apnea: No Thyroid Disease: No Influenza Vaccination: No PNEUMOCCOCAL Vaccine (Year): 2 ?: Not LMP: 10/16/2017 : 2 Para: 2 Tubal Ligation: Yes Past Surgical History Abdominal Surgery: No AICD: No Cardiac Surgery: No Ear Surgery: No Endocrine Surgery: No Eye Surgery: No Genitourinary Surgery: No Gynecologic Surgery: Yes (TUBAL LIGATION) Oral Surgery: No Pacemaker: No Thoracic Surgery: No Other Surgery: Yes Social History Alcohol Use: No Tobacco Use: No Substance Use: No Allergies-Medications (Allergen,Severity, Reaction): Coded Allergies: Iodinated Contrast- Oral and IV Dye (Unverified Allergy, Severe, Anaphylaxis, 11/12/17) iodine (Unverified Allergy, Severe, Anaphylaxis, 11/12/17) potassium iodide (Unverified Allergy, Severe, Anaphylaxis, 11/12/17) povidone-iodine (Unverified Allergy, Severe, Anaphylaxis, 11/12/17) shrimp (Unverified Allergy, Severe, Anaphylaxis, 11/12/17) sodium iodide (Unverified Allergy, Severe, Anaphylaxis, 11/12/17) sodium iodide (Unverified Allergy, Severe, Anaphylaxis, 11/12/17) Reported Meds & Prescriptions Reported Meds & Active Scripts Active Mucinex DM (Dextromethorphan-Guaifenesin) 30-600 Mg Tab 1 Tab PO BID PRN Metformin (Metformin HCl) 500 Mg Tab 500 Mg PO BIDPC With meals Reported Glipizide 5 Mg Tab 5 Mg PO BIDAC Take 30 minutes before a meal Review of Systems Except as stated in HPI: all other systems reviewed are Neg Cardiovascular: Positive: Chest Pain or Discomfort Respiratory: Positive: Cough, Shortness of Breath, Wheezing Physical Exam Narrative GENERAL: 42-year-old female pleasant well-nourished well-developed frequent cough SKIN: Warm and dry. HEAD: Atraumatic. Normocephalic. EYES: Pupils equal and round. No scleral icterus. No injection or drainage. ENT: No nasal bleeding or discharge. Mucous membranes pink and moist. Posterior oropharynx widely patent. NECK: Trachea midline. No JVD. CARDIOVASCULAR: Heart rate about 110. Regular rhythm. RESPIRATORY: Wheezing present bilaterally. No significant tachypnea. GASTROINTESTINAL: Abdomen soft, non-tender, nondistended. Hepatic and splenic margins not palpable. MUSCULOSKELETAL: Extremities without clubbing, cyanosis, or edema. No obvious deformities. NEUROLOGICAL: Awake and alert. No obvious cranial nerve deficits. Motor grossly within normal limits. Five out of 5 muscle strength in the arms and legs. Normal speech. PSYCHIATRIC: Appropriate mood and affect; insight and judgment normal. Data Data Last Documented VS Vital Signs Date Time Temp Pulse Resp B/P (MAP) Pulse Ox O2 Delivery O2 Flow Rate FiO2 11/12/17 21:15 98.3 110 20 143/89 (107) Orders Orders Electrocardiogram (11/12/17 21:17) Chest, Single Ap (11/12/17 21:17) Sodium Chloride 0.9% Flush (Ns Flush) (11/12/17 21:30) Albuterol Neb (Albuterol Neb) (11/12/17 21:30) Ketorolac Inj (Toradol Inj) (11/12/17 22:45) Complete Blood Count With Diff (11/12/17 22:44) Iv Access Insert/Monitor (11/12/17 22:44) Ecg Monitoring (11/12/17 22:44) Oximetry (11/12/17 22:44) Ondansetron Inj (Zofran Inj) (11/12/17 22:45) Sodium Chlor 0.9% 1000 Ml Inj (Ns 1000 M (11/12/17 22:44) Sodium Chloride 0.9% Flush (Ns Flush) (11/12/17 22:45) Comprehensive Metabolic Panel (11/12/17 22:44) Lipase (11/12/17 22:44) MDM Medical Decision Making Medical Screen Exam Complete: Yes Emergency Medical Condition: Yes Medical Record Reviewed: Yes Differential Diagnosis Pneumonia, bronchitis, influenza, costochondritis Narrative Course Last Impressions Chest X-Ray 11/12/172116 Signed Impressions: Service Date/Time: Sunday, November 12, 2017 21:32 - CONCLUSION: No acute disease. Bob Ribeiro Jr., MD EKG: sinus, rate 109, TN interval 116, no ischemic injury pattern Pt after neb treatment reports no improvement. Labwork added on Toradol and GI cocktail ordered d/w Dr Villavicencio at 1100pm Disposition: 01 DISCHARGE HOME Condition: Stable Abraham Griffith MD Nov 12, 2017 22:43
[2017-11-12] MEDS ORDERED: SODIUM CHLOR 0.9% 1000 ML INJ 1,000 ML IV SCH (22:44)
[2017-11-12] MEDS ORDERED: ONDANSETRON HCL 4 MG/2 ML VIAL IVP ONE (22:45)
[2017-11-12] MEDS ORDERED: SODIUM CHLORIDE 0.9% FLUSH 10 ML FLUSH IV FLUSH PRN (22:45)
[2017-11-12] MEDS ORDERED: KETOROLAC TROMETHAMINE 60 MG/2 ML (IM) VIAL IM ONE (22:45)
--- NOTE | 2017-11-12 22:52 | PD ---
Physical Exam Date Seen by Provider: Nov 12, 2017 Time Seen by Provider: 22:51 Narrative Accepted transfer of care from Dr. Griffith Data Data Last Documented VS Vital Signs Date Time Temp Pulse Resp B/P (MAP) Pulse Ox O2 Delivery O2 Flow Rate FiO2 11/12/17 21:15 98.3 110 20 143/89 (107) Orders Orders Electrocardiogram (11/12/17 21:17) Chest, Single Ap (11/12/17 21:17) Sodium Chloride 0.9% Flush (Ns Flush) (11/12/17 21:30) Albuterol Neb (Albuterol Neb) (11/12/17 21:30) Ketorolac Inj (Toradol Inj) (11/12/17 22:45) Complete Blood Count With Diff (11/12/17 22:44) Iv Access Insert/Monitor (11/12/17 22:44) Ecg Monitoring (11/12/17 22:44) Oximetry (11/12/17 22:44) Ondansetron Inj (Zofran Inj) (11/12/17 22:45) Sodium Chlor 0.9% 1000 Ml Inj (Ns 1000 M (11/12/17 22:44) Sodium Chloride 0.9% Flush (Ns Flush) (11/12/17 22:45) Comprehensive Metabolic Panel (11/12/17 22:44) Lipase (11/12/17 22:44) Al-Mag Hy-Si 40-40-4 Mg/Ml Liq (Mag-Al P (11/12/17 23:00) Lidocaine 2% Viscous (Xylocaine 2% Visco (11/12/17 23:00) Labs Laboratory Tests Test 11/12/17 22:30 White Blood Count 5.2 TH/MM3 Red Blood Count 4.69 MIL/MM3 Hemoglobin 10.9 GM/DL Hematocrit 35.3 % Mean Corpuscular Volume 75.2 FL Mean Corpuscular Hemoglobin 23.2 PG Mean Corpuscular Hemoglobin Concent 30.9 % Red Cell Distribution Width 15.0 % Platelet Count 238 TH/MM3 Mean Platelet Volume 9.3 FL Neutrophils (%) (Auto) 57.4 % Lymphocytes (%) (Auto) 31.7 % Monocytes (%) (Auto) 9.8 % Eosinophils (%) (Auto) 0.6 % Basophils (%) (Auto) 0.5 % Neutrophils # (Auto) 3.1 TH/MM3 Lymphocytes # (Auto) 1.6 TH/MM3 Monocytes # (Auto) 0.5 TH/MM3 Eosinophils # (Auto) 0.0 TH/MM3 Basophils # (Auto) 0.0 TH/MM3 CBC Comment DIFF FINAL Differential Comment Blood Urea Nitrogen 10 MG/DL Creatinine 0.91 MG/DL Random Glucose 236 MG/DL Total Protein 7.9 GM/DL Albumin 3.5 GM/DL Calcium Level 8.2 MG/DL Alkaline Phosphatase 123 U/L Aspartate Amino Transf (AST/SGOT) 31 U/L Alanine Aminotransferase (ALT/SGPT) 29 U/L Total Bilirubin 0.3 MG/DL Sodium Level 134 MEQ/L Potassium Level 3.9 MEQ/L Chloride Level 102 MEQ/L Carbon Dioxide Level 24.6 MEQ/L Anion Gap 7 MEQ/L Estimat Glomerular Filtration Rate 83 ML/MIN Lipase 152 U/L MDM Medical Record Reviewed: Yes Supervised Visit with LUCRECIA: No Interpretation(s) Last Impressions Chest X-Ray 11/12/172116 Signed Impressions: Service Date/Time: Sunday, November 12, 2017 21:32 - CONCLUSION: No acute disease. Bob Ribeiro Jr., MD CBC & BMP Diagram 11/12/17 22:30 Total Protein 7.9, Albumin 3.5, Calcium Level 8.2 L, Alkaline Phosphatase 123 H , Aspartate Amino Transf (AST/SGOT) 31, Alanine Aminotransferase (ALT/SGPT) 29, Total Bilirubin 0.3 Vital Signs Date Time Temp Pulse Resp B/P (MAP) Pulse Ox O2 Delivery O2 Flow Rate FiO2 11/12/17 21:15 98.3 110 20 143/89 (107) Differential Diagnosis Accepted transfer of care from Dr. Griffith; please refer to his dictation Narrative Course Accepted transfer of care from Dr. Griffith; follow up of pending labs and cxr Patient clinically improved after Toradol and GI cocktail and nebulized treatments Patient with recent respiratory illness that was felt to be a mild viral in nature has not improved with [id number]-[id number] medications presents for ongoing cough congestion and myalgias arthralgias Lab values are found to be grossly within normal range except for some mild hyperglycemia has not taken her evening blood sugar medication patient is not a candidate for steroid therapy will discharge with prescription for azithromycin and albuterol guaifenesin with codeine to use as needed for cough Patient will need to rest and given work excuse and encouraged to follow-up with her primary doctor and no on Wednesday. Diagnosis Primary Impression: Bronchitis Referrals: Primary Care Physician 3 days Patient Instructions: General Instructions Departure Forms: Tests/Procedures, Work Release Special Instructions: no work x 3 days Additional Instruction: Take a prescription medications as prescribed specifically her metformin Follow-up with your primary care provider on Wednesday No work 3 days Increase fluid hydration Monitor temperature every 4 hours with thermometer take as needed acetaminophen/ Tylenol for fever 100.4F or greater Return to the emergency department for any concerns or change in condition Med/Other Pt SpecificInfo: Prescription(s) given Scripts Azithromycin (Zithromax Z-Miguelangel) 250 Mg Dspk 250 MG PO DIRECTED for Infection, #1 DSPK 0 Refills 500 MG (2 tabs) day 1, then 1 tab days 2-5. Prov: Shanice Villavicencio MD 11/12/17 Guaifenesin-Codeine Liq (Guaifenesin-Codeine Liq) 100-10 Mg/5 Ml Soln 10 ML PO Q6H Y for COUGH, #1 BOTTLE 0 Refills Prov: Shanice Villavicencio MD 11/12/17 Albuterol 18 GM Inh (Ventolin Hfa 18 GM Inh) 90 Mcg/Act Aer 2 PUFF INH Q4-6H Y for SHORTNESS OF BREATH, #1 INHALER 0 Refills Prov: Shanice Villavicencio MD 11/12/17 Disposition: 01 DISCHARGE HOME Condition: Stable Shanice Villavicencio MD Nov 12, 2017 22:52
[2017-11-12] MEDS ORDERED: ALUMINUM/MAGNESIUM/SIMETH 30 ML CUP PO ONE (23:00)
[2017-11-12] MEDS ORDERED: LIDOCAINE VISCOUS 2% SOLN 15 ML UDC PO ONE (23:00)
[2017-11-12 23:01] LABS: AUTOMATED NEUTROPHIL # 3.1 TH/MM3 (1.8-7.7); BASOPHIL % 0.5 % (0.0-2.0); EOSINOPHIL % 0.6 % (0.0-4.0); HEMATOCRIT 35.3 % (35.0-46.0); HEMOGLOBIN 10.9 GM/DL (11.6-15.3); LYMPH % 31.7 % (9.0-44.0); LYMPHOCYTE # 1.6 TH/MM3 (1.0-4.8); MEAN CELL VOLUME 75.2 FL (80.0-100.0); MEAN CORPUSCULAR HEMOGLOBIN 23.2 PG (27.0-34.0); MEAN CORPUSCULAR HGB CONC 30.9 % (32.0-36.0); MEAN PLATELET VOLUME 9.3 FL (7.0-11.0); MONO % 9.8 % (0.0-8.0); MONOCYTE # 0.5 TH/MM3 (0-0.9); NEUT % 57.4 % (16.0-70.0); PLATELET COUNT 238 TH/MM3 (150-450); RED BLOOD COUNT 4.69 MIL/MM3 (4.00-5.30); WHITE BLOOD COUNT 5.2 TH/MM3 (4.0-11.0)
[2017-11-12 23:09] LABS: CHLORIDE 102 MEQ/L (98-107); SODIUM (NA) 134 MEQ/L (136-145)
[2017-11-12 23:12] LABS: CALCIUM 8.2 MG/DL (8.5-10.1)
[2017-11-12 23:13] LABS: ALBUMIN 3.5 GM/DL (3.4-5.0); BICARBONATE 24.6 MEQ/L (21.0-32.0); BLOOD UREA NITROGEN 10 MG/DL (7-18); GLUCOSE,RANDOM 236 MG/DL (74-106); LIPASE 152 U/L (73-393)
[2017-11-12 23:16] LABS: ALT (GPT) 29 U/L (10-53); AST (GOT) 31 U/L (15-37); CREATININE 0.91 MG/DL (0.50-1.00); GLOMERULAR FILTRATION RATE 83 ML/MIN (>89)
[2017-11-12 23:17] LABS: TOTAL BILIRUBIN ADULT 0.3 MG/DL (0.2-1.0); TOTAL PROTEIN 7.9 GM/DL (6.4-8.2)
[2017-11-12 23:19] LABS: ALKALINE PHOSPHATASE 123 U/L (45-117)
[2017-11-12] MEDS ORDERED: GUAI100S5 PO (23:53)
[2017-11-12] MEDS ORDERED: VENTAER INH (23:53)
[2017-11-12] MEDS ORDERED: ZITHTAB PO (23:54)
[2017-11-13 00:17] VITALS: BP 139/90; TEMP 98.6
[2017-11-13 00:20] VITALS: RESP 18; O2SAT 100
--- NOTE | 2017-11-13 15:03 | EKG ---
Date Performed: 11/12/2017 Time Performed: 21:08:48 PTAGE: 42 years EKG: SINUS TACHYCARDIA WITH SHORT IN INTERVAL ABNORMAL RHYTHM ECG Since PREVIOUS TRACING , no significant change noted PREVIOUS TRACIN09/19/2017 19.45 DOCTOR: Josh Nicholson Interpretating Date/Time 11/13/2017 15:03:19
== END 2017-11-13 00:26 | disposition home or self-care (01) ==
LOC: PHED 21:00
DX: J40 Bronchitis, not specified as acute or chronic (principal); R94.31 Abnormal electrocardiogram [ECG] [EKG]; R05 Cough; J45.909 Unspecified asthma, uncomplicated; E11.9 Type 2 diabetes mellitus without complications; M54.5 Low back pain
CPT/HCPCS: 71045; 80053; 83690; 85025; 93005; 94664; 96361; 96372; 96374; 99285; J1885; J2405; J7030; J7613